=== PATIENT | male | born 2000 | race Caucasian/White ===

== ENCOUNTER 2020-06-27 11:27 | Outpatient (REF) | payer OTHER, SELFPAY ==
[2020-06-30 16:58] LABS: SARS-CoV-2 RNA Undetected (Undetected); SARS-CoV-2 Specimen Source Nasopharynx
== END 2020-06-27 11:47 ==
LOC: NCHCN 11:27
PROVIDERS: Visit Provider Internal Medicine
DX: Z20.828 Contact with and (suspected) exposure to other viral communicable diseases (principal)
CPT/HCPCS: U0003

== ENCOUNTER 2023-10-23 17:40 | Outpatient (REF) | payer OTHER, SELFPAY ==
[2023-10-23 21:19] LABS: Abs Immature Grans 0.01 10^3/uL (0.0-0.06); Absolute Basophil Count 0.03 10^3/uL (0.0-0.2); Absolute Eosinophil Count 0.05 10^3/uL (0.0-0.7); Absolute Lymphocyte Count 1.83 10^3/uL (1.2-3.4); Absolute Monocyte Count 0.53 10^3/uL (0.1-0.8); Absolute Neutrophil Count 3.17 10^3/uL (1.2-6.7); Basophils % 0.5; Eosinophils % 0.9; HCT 43.7 % (40.0-50.0); HGB 15.5 g/dL (13.5-17.5); Immature Grans % 0.2; Lymphocytes % 32.6; MCH 31.1 pg (27.0-33.0); MCHC 35.5 % (32.0-36.0); MCV 88 fL (80-95); MPV 9.3 fL (8.0-11.0); Monocytes % 9.4; Neutrophils % 56.4; Platelet Count 244 10^3/uL (130-400); RBC 4.99 10^6/uL (4.36-5.78); RDW 11.9 % (11.8-14.1); RDW-SD 38.2 fL; WBC 5.62 10^3/uL (4.4-10.8)
[2023-10-23 21:36] LABS: ALT 23 U/L (16-63); AST 18 U/L (15-37); Albumin 3.9 g/dL (3.4-5.0); Alkaline Phosphatase 69 U/L (46-116); Anion Gap 7.3 mmol/L (3-11); BUN 12 mg/dL (7-18); Bilirubin, Total 0.4 mg/dL (0.2-1.0); CO2 28.7 mmol/L (21.0-32.0); CREATININE 0.8 mg/dL (0.70-1.30); Chloride 106 mmol/L (98-107); Estimated GFR 126.74 (mL/min/1.73m2); Glucose 96 mg/dL (74-106); Potassium 4.2 mmol/L (3.5-5.1); Sodium 142 mmol/L (136-145); TSH (W/Ref FT4) 0.88 uIU/mL (0.36-3.74); Total Protein 7.4 g/dL (6.4-8.2)
== END 2023-10-23 17:41 | disposition home or self-care (01) ==
LOC: NCHCN 17:40
PROVIDERS: Visit Provider Physician Assistant
DX: R53.83 Other fatigue (principal)
CPT/HCPCS: 80053; 84443; 85025; 86664; 86665

== ENCOUNTER 2023-10-28 15:14 | Outpatient (REF) | payer OTHER, SELFPAY ==
[2023-10-29 10:31] LABS: Lyme Ab w Rflx to Lyme Confirm Negative (Negative)
[2023-10-30 10:32] LABS: EBNA IgG Positive (Negative); VCA IgG Negative (Negative); VCA IgM Negative (Negative)
[2023-11-05 09:43] LABS: Anaplasma phagocytophilum Negative (Negative); B. miyamotoi PCR Negative (Negative); Babesia divergens/MO-1 Negative (Negative); Babesia duncani Negative (Negative); Babesia microti Negative (Negative); Ehrlichia chaffeensis Negative (Negative); Ehrlichia ewingii/canis Negative (Negative); Ehrlichia muris eauclairensis Negative (Negative)
== END 2023-10-28 15:15 | disposition home or self-care (01) ==
LOC: NCHCN 15:14
PROVIDERS: PCP Physician Assistant; Visit Provider Physician Assistant
DX: R53.83 Other fatigue (principal); Z11.59 Encounter for screening for other viral diseases; Z11.8 Encounter for screening for other infectious and parasitic diseases
CPT/HCPCS: 87798; 86618; 86664; 86665

== ENCOUNTER 2024-08-11 13:23 | Outpatient (REF) | payer SELFPAY ==
[2024-08-11 15:31] LABS: HGB 15.4 g/dL (13.5-17.5); MCH 31.1 pg (27.0-33.0); MCHC 34.2 % (32.0-36.0); MCV 91 fL (80-95); MPV 9.2 fL (8.0-11.0); Platelet Count 232 10^3/uL (130-400); RBC 4.95 10^6/uL (4.36-5.78); RDW 11.7 % (11.8-14.1); RDW-SD 38.5 fL; WBC 4.55 10^3/uL (4.4-10.8)
[2024-08-11 16:18] LABS: ALT 29 U/L (16-63); AST 26 U/L (15-37); Albumin 3.7 g/dL (3.4-5.0); Alkaline Phosphatase 80 U/L (46-116); Anion Gap 7.7 mmol/L (3-11); BUN 15 mg/dL (7-18); Bilirubin, Total 0.39 mg/dL (0.2-1.0); CO2 28.3 mmol/L (21.0-32.0); Chloride 107 mmol/L (98-107); Estimated GFR 107.12 (mL/min/1.73m2); Glucose 92 mg/dL (74-106); Potassium 4.3 mmol/L (3.5-5.1); Sodium 143 mmol/L (136-145); Total Protein 7.1 g/dL (6.4-8.2)
[2024-08-11 16:22] LABS: VALPROIC ACID 51.3 ug/mL
== END 2024-08-11 13:24 | disposition home or self-care (01) ==
LOC: NCHCN 13:23
PROVIDERS: PCP Physician Assistant; Visit Provider Family Medicine
DX: G40.909 Epilepsy, unspecified, not intractable, without status epilepticus (principal); Z51.81 Encounter for therapeutic drug level monitoring
CPT/HCPCS: 80053; 85027; 80164